=== PATIENT | male | born 2000 | race Caucasian/White ===

== ENCOUNTER 2025-06-20 08:56 | Day surgery (SDC) | payer OTHER, SELFPAY ==
[2025-06-17 09:41] VITALS: BMI 59.4
--- NOTE | 2025-06-20 | PATH_ITS ---
[facility] Accession Number: [id number] No. of containers..01 Tissue . 01 Material submitted: . arm - RIGHT UPPER ARM MASS . 01 Diagnosis: RIGHT UPPER ARM MASS, EXCISION: Mature adiopse tissue, consistent with lipoma. Negative for malignancy. MRV 06/24/2025 1458 Local . 01 Electronically signed: . Angelita Encarnacion MD, Pathologist NPI- [id number] . 01 Gross description: . The specimen is received in formalin, labeled with two patient identifiers and right upper arm mass, and consists of a 12.0 x 10.5 x 5.0 cm, yellow, lobulated, encapsulated, fatty mass which is inked and serially sectioned to show a yellow, lobulated, homogenous cut surface. No evidence of cystic changes or necrosis is identified. Thermoforming Operator sections are submitted in cassettes A1-A4. ([id number]) /FRR 06/24/2025 1705 Local . 01 Pathologist provided ICD-10: D17.9 . 01 CPT . 474880 Specimen Comment: A courtesy copy of this report has been sent to [facility]ology Performed at: [address] [address], [place], [place] [id number] MD Connor Meek MD Phone: [phone]
--- NOTE | 2025-06-20 06:18 | PM.PREOP ---
Pre-operative Note Interval Note History & Physical reviewed/Exam performed by Physician: Yes Changes to H&P: No ASA Class (for procedural sedation): III
[2025-06-20 09:52] VITALS: BP 125/83; PULSE 96; RESP 16; TEMP 36.1; O2SAT 96; BMI 59.4
[2025-06-20] MEDS: LACTATED RINGERS 1,000 ML 42 ML IV (09:58)
--- NOTE | 2025-06-20 11:28 | SUR.OPER ---
Supine on padded OR bed, head on pillow, arms secured on padded arm boards at <90 degrees abduction, legs uncrossed, safety belt at thigh and abdomen, tape over blanket over lower legs.
[2025-06-20 12:00] VITALS: BP 157/66; PULSE 95; RESP 14; TEMP 36.4; O2SAT 99
[2025-06-20 12:05] VITALS: BP 156/70; PULSE 86; RESP 19; O2SAT 98
[2025-06-20 12:11] VITALS: BP 137/64; PULSE 87; RESP 17; O2SAT 97
--- NOTE | 2025-06-20 12:25 | PM.OP.1 ---
Operative Date/Time/Diagnoses Date of procedure: 06/20/25 Time of procedure: 12:25 Pre-op diagnosis: RUQ mass Post-op diagnosis: same Procedure & Clinicians Procedure: Excision large mass RUE, 10cm Same procedure(s) as scheduled: Yes Indications: 25yo M, large 10cm mass, RUE, right deltoid region Surgeon: Lino Lira Assisted?: No Anesthesia Type: MAC +/- Operative Notes Findings: Clinical lipoma, unilobular Closure Type: primary Specimen(s): other (mass) Applied: none Estimated Blood Loss (mL): 10 Blood products transfused: none Procedure in detail: After informed consent and satisfactory sedation the right deltoid region was prepped and draped in the usual sterile manner. Surgical time-out was performed with all team members in agreement. We infiltrated the skin and subcutaneous tissues with a total of 30 cc of 0.5% Marcaine with epinephrine. The skin incision which was made with a 15 blade along Axel's lines. This was continued through the skin and subcutaneous tissues. The mass was noted to be in the subcutaneous position. It was clinically consistent with a lipoma. It was unilocular. It was easily removed with blunt dissection and came out intact as one piece. Hemostasis was achieved with cautery. The space was closed using 3-0 Vicryl interrupted. The skin incision was closed using 4-0 Monocryl in a subcuticular manner. Dermabond glue was applied as a final dressing. The estimated blood loss was minimal. The instrument sponge and needle counts were all correct x2. The patient tolerated the procedure well and was transported to the recovery area in stable condition. The mass measured 10 cm in greatest dimension. Complications: none Post-operative Condition: stable Disposition: PACU Plan for aftercare: PACU then home
== END 2025-06-20 12:25 | disposition home or self-care (01) ==
PROVIDERS: PCP Internal Medicine; Referring Provider Surgery; Visit Provider Surgery
PROC: (CPT 24071; principal; 2025-06-20 10:45)
DX: D17.21 Benign lipomatous neoplasm of skin and subcutaneous tissue of right arm (principal)
CPT/HCPCS: 24071; J2704; J7120